=== PATIENT | female | born 2005 | race Caucasian/White ===

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

== ENCOUNTER 2024-01-16 02:11 | Emergency (ER) | payer OTHER ==
[~2024-01-16] VITALS: Ht 160 cm; Wt 105.3 kg
[2024-01-16 02:13] VITALS: TEMP 98.1
[2024-01-16] MEDS ORDERED: FLUO40CA PO (02:18)
[2024-01-16 02:51] LABS: VENOUS HCO3 18.2 MMOL/L (23.0-27.0); VENOUS O2 SATURATION 98.8 % (60.0-80.0); VENOUS PARTIAL PRESSURE CO2 26.5 mmHg (38.0-50.0); VENOUS PARTIAL PRESSURE O2 154.1 mmHg (30.0-50.0); VENOUS PH 7.455 UNITS (7.330-7.430); VENOUS STANDARD HCO3 21.2 MMOL/L
[2024-01-16 02:54] LABS: HEMATOCRIT 40.6 % (36.0-47.0); HEMOGLOBIN 13.5 g/dl (12.0-15.5); MEAN CORPUSCULAR HGB CONC 33.3 g/dl (32.0-36.5); MEAN CORPUSCULAR VOLUME 87.1 fl (80.0-96.0); PLATELET COUNT, AUTOMATED 486 10^3/uL (150-450); RED BLOOD COUNT 4.66 10^6/uL (4.00-5.40); WHITE BLOOD COUNT 18.5 10^3/uL (4.0-10.0)
[2024-01-16 03:21] LABS: ATYPICAL LYMPH 6 % (0-5); BASOPHILS 1 % (0-1); EOSINOPHILS 1 % (0-3); LYMPHOCYTES 33 % (16-44); MONOCYTES 4 % (0-5); NEUTROPHILS 55 % (28-66); PLATELET ESTIMATE INCREASED (NORMAL)
[2024-01-16 03:26] LABS: ALBUMIN 3.8 G/DL (3.2-5.2); ALKALINE PHOSPHATASE 73 U/L (46-116); ALT/SGPT 25 U/L (7.0-40); AST/SGOT 21 U/L (<34); BILIRUBIN,DIRECT < 0.1 MG/DL (<0.4); BILIRUBIN,TOTAL 0.3 MG/DL (0.3-1.2); BLOOD UREA NITROGEN 14 MG/DL (9-23); CALCIUM LEVEL 9.2 MG/DL (8.5-10.1); CARBON DIOXIDE LEVEL 20 MMOL/L (20-31); CHLORIDE LEVEL 105 MMOL/L (98-107); GLUCOSE, FASTING 138 MG/DL (60-100); POTASSIUM SERUM 3.7 MMOL/L (3.5-5.1); SODIUM LEVEL 138 MMOL/L (136-145); TOTAL PROTEIN 7.6 G/DL (5.7-8.2)
[2024-01-16 03:29] LABS: HCG, SERUM QUALITATIVE NEGATIVE (NEGATIVE)
[2024-01-16] MEDS: NS 2,160 ML in IV 1 EA IV ONE (04:04)
[2024-01-16] MEDS: NS 1,000 ML IV ONE (04:04)
[2024-01-16 06:26] VITALS: O2SAT 92
[2024-01-16 06:31] VITALS: BP 117/68
== END 2024-01-16 07:00 | disposition home or self-care (01) ==
LOC: M ED 02:11
DX: T67.5XXA Heat exhaustion, unspecified, initial encounter (principal); R00.0 Tachycardia, unspecified; F41.1 Generalized anxiety disorder; F32.A Depression, unspecified; H81.4 Vertigo of central origin; Z79.899 Other long term (current) drug therapy